=== PATIENT | female | born 2005 | race Caucasian/White ===

== ENCOUNTER 2025-01-08 09:37 | Emergency (ER) | payer BC, SELFPAY ==
[2025-01-08 09:41] VITALS: BP 144/97; PULSE 97; RESP 15; O2SAT 97
[2025-01-08 09:45] VITALS: BP 144/97; PULSE 97; RESP 15; TEMP 36.6; O2SAT 97
--- NOTE | 2025-01-08 10:11 | DI.CT_ITS ---
Exam(s) CT ABDOMEN PELVIS W EXAM: CT ABDOMEN PELVIS W CLINICAL HISTORY: Lower abd pain, right flank pain. TECHNIQUE: Imaging Protocol: Axial computed tomography images with coronal and sagittal reformatted images were created and reviewed CONTRAST MATERIAL: Intravenous: Omnipaque-350 75cc Oral: None COMPARISON: No exams were available for comparison FINDINGS: VISUALIZED LUNG BASES: Mild benign-appearing subpleural increased markings in the posterior basal segment of the right lower lobe. There is no associated pleural effusion. No overlying rib fractures.. ABDOMEN: There is no ascites. LIVER: There are no focal hepatic lesions evident. No dilated intrahepatic ducts. GALLBLADDER/BILIARY: No acute gallbladder pathology evident. CBD is not dilated. PANCREAS: No evidence of pancreatic mass nor dilatation of the pancreatic duct. SPLEEN: Spleen is not enlarged. No obvious intrasplenic lesions. Splenic and portal veins are patent. ADRENALS: There are no significant adrenal masses. KIDNEYS:No cysts evident. No solid renal masses. No calculi nor hydronephrosis.. ABDOMINAL AORTA: Abdominal aorta is not enlarged. LYMPH NODES:There is no retroperitoneal nor paraaortic adenopathy. ABDOMINAL WALL: No evidence of significant anterior abdominal wall nor inguinal hernia. GI: There is no evidence of bowel obstruction, free air, nor abscess. PELVIS: GI: No evidence of appendicitis.No evidence of sigmoid diverticulitis. LYMPH NODES: There is no intrapelvic nor inguinal adenopathy. REPRODUCTIVE: There is an IUD in the uterine atrial cavity which appears to be in satisfactory position. Follicular cysts are noted in both ovaries. No significant ovarian masses and no free fluid in the adnexal regions and cul-de-sac. URINARY BLADDER: No calculi nor obvious masses evident OSSEOUS: No fractures and no significant osseous lesions. Limbus vertebra incidentally noted at the anterosuperior aspect of L4 vertebral body. No disc space narrowing. IMPRESSION: 1. There is an IUD in satisfactory position in the endometrial canal of the anteverted uterus. No abnormal adnexal findings. No free fluid prior 2. No evidence of acute appendicitis. 3. No obvious urinary tract findings. Report called by myself to ER provider 01/08/2025 at 11:02 a.m. RADIATION DOSE DELIVERED: 388.09mGy.cm Total DLP DATA REPOSITORY: All CT scans at this facility are submitted to the National Radiology Data Registry (NRDR) Dose Index Registry (DIR) with the [employer] (A[employer]). RADIATION OPTIMIZATION: All CT scans at this facility use at least one of these dose optimization techniques: automated exposure control; mA and/or kV adjustment per patient size (includes targeted exams where dose is matched to clinical indication); or iterative reconstruction.
--- NOTE | 2025-01-08 10:12 | ED.GENADUL_ITS ---
Discharge Plan Disposition Patient Disposition: Home Condition: Stable Discharge Details Clinical Impression: Abdominal pain Primary Care Provider: None,None ED Provider: Alie Zavala Home Meds and New Rx's Prescriptions: New cephalexin 500 mg capsule 500 mg PO BID 7 Days Qty: 14 0RF Rx Instructions: Take 1 tablet by mouth twice daily for the next 7 days Discharge Instructions Instructions: Abdominal Pain, Adult ED Additional Instructions: At this time the labs and CT imaging are within normal limits. You do have some leukocytes and white blood cell in your urinalysis. You are placed on an antibiotic called cephalexin. Please take this as directed with yogurt or a probiotic twice daily for the next 7 days. Follow up with primary care provider in 3-5 days. Return to ED sooner if any worsening or concerns. Please take Tylenol or Ibuprofen with food every 4-6 hours as needed for pain and swelling. Referrals: Primary Care Provider [Outside] Discharge Data Discharge Date/Time-TO BE ENTERED AT DEPARTURE: 01/08/25 11:49 HPI General Mode of arrival: ambulatory . Date/Time Provider Initiated Documentation: 01/08/25 09:48 . Limitations to Documentation: no limitations . Information obtained by: patient, RN notes reviewed and old records reviewed . HPI Narrative: 19 year old female presents to the ER with a chief complaint of lower abdominal pain after eating some antibiotics for urinary tract infection over the last week. Has been seen at urgent care and diagnosed with UTI. She is not currently taking any antibiotic she did stop the antibiotics. Denies any nausea vomiting diarrhea. Currently has an IUD and denies any possibility of . Related Data Home Medications ?Medication ?Instructions ?Recorded ?Confirmed cephalexin 500 mg capsule 500 mg PO BID UTI 7 days #14 caps 01/08/25 Previous Rx's ?Medication ?Instructions ?Recorded cephalexin 500 mg capsule 500 mg PO BID UTI 7 days #14 caps 01/08/25 Allergies Allergy/AdvReac Type Severity Reaction Status Date / Time Penicillins Allergy Mild Itching Verified 01/08/25 09:46 General Stated Complaint: Abd Prob DENNIS: 3 Review of Systems All systems reviewed & are unremarkable except as noted in HPI and below Gastrointestinal Gastrointestinal: Reports as per HPI and Reports abdominal pain Exam Narrative Exam Narrative: Constitutional: Alert and oriented x3. Appears stated age. Normal body habitus. Head: Normocephalic, no trauma. Eyes: Pupils PERRL, Red reflex noted, EOM's intact. Eyelids symmetrical without lesions, discharge, or swelling. ENT: Bilateral TM's WNL, External ear normal to inspection, no mastoid TTP, swelling, or erythema, Nasal turbinates WNL, no nasal discharge. Normal denti tion, Posterior pharynx WNL, no exudate. Chest: RRR, Normal S1, S2, distal pulses intact. Resp: Lungs clear to auscultation bilaterally, no wheezes, rales, or rhonchi. Abdomen: Soft, non-distended, Normoactive bowel sounds all 4 quads. Musculoskeletal: Normal gait, Moves all 4 extremities without difficulty. Skin: No suspicious rashes or lesions. Capillary refill less than 2 sec. Neurologic: Cranial nerves II-XII intact. Alert and oriented x 3. Motor: No deficits noted. Sensory: Intact bilaterally all 4 extremities. Hematologic/Lymphatic: No ecchymosis, no lymphadenopathy. Course Vital Signs Vital signs: Vital Signs Pulse 97 H 01/08/25 09:41 Respiratory Rate 15 01/08/25 09:41 Blood Pressure 144/97 H 01/08/25 09:41 Pulse Oximetry 97 01/08/25 09:41 Temperature 36.6 C 01/08/25 09:45 Temperature Source Tympanic 01/08/25 09:45 Pulse 97 H 01/08/25 09:45 Respiratory Rate 15 01/08/25 09:45 Blood Pressure 144/97 H 01/08/25 09:45 Blood Pressure Position Sitting 01/08/25 09:45 Pulse Oximetry 97 01/08/25 09:45 Oxygen Delivery Method Room Air 01/08/25 09:45 Oxygen Flow Rate 0 01/08/25 09:45 Pain Level 5 01/08/25 09:45 Comment Pain gets worse as the day goes on 01/08/25 09:45 Lab/Test Results Lab/Test Results: POC- Test(urine) Negative Medical Decision Making 19 year old female presents to the ER with a chief complaint of lower abdominal pain after eating some antibiotics for urinary tract infection over the last week. Has been seen at urgent care and diagnosed with UTI. She is not currently taking any antibiotic she did stop the antibiotics. Denies any nausea vomiting diarrhea. Currently has an IUD and denies any possibility of . CBC CMP lipase urinalysis ordered. CT abdomen pelvis. Differential diagnose include but not limited to UTI, kidney stone, ovarian cyst, CT is WNL, no acute abnormality. No leukocytosis, CMP within normal limits urinalysis shows large leukocytes greater than 50 WBCs with many epithelial cells, culture not indicated at this time due to squamous contamination. Will give Cephalexin Discussed home care follow-up care and plan of care with patient and family who verbalized understanding. This text was generated using [employer] dictation system, please disregard any oddities of phrase or misspellings. Lab Data Lab results reviewed: Yes I reviewed the patient's lab results. Labs: Laboratory Tests Range/Units 01/08/25 10:00 WBC (4.4-10.8) 10^3/uL 6.11 RBC (3.93-5.22) 10^6/uL 4.81 Hgb (11.2-15.7) g/dL 13.6 Hct (36.0-46.0) % 40.9 MCV (80-95) fL 85 MCH (27.0-33.0) pg 28.3 MCHC (32.0-36.0) % 33.3 RDW (11.7-14.6) % 12.2 Plt Count (130-400) 10^3/uL 330 MPV (8.0-11.0) fL 8.5 Immature Gran % % 0.2 Neutrophils % % 58.2 Lymphocytes % % 30.4 Monocytes % % 9.2 Eosinophils % % 1.5 Basophils % % 0.5 Nucleated RBC % (0.0-0.3) % 0.0 Absolute Neutrophils (1.2-6.7) 10^3/uL 3.56 Absolute Lymphocytes (1.2-3.4) 10^3/uL 1.86 Absolute Monocytes (0.1-0.8) 10^3/uL 0.56 Absolute Eosinophils (0.0-0.7) 10^3/uL 0.09 Absolute Basophils (0.0-0.2) 10^3/uL 0.03 Sodium (136-145) mmol/L 138 Potassium (3.5-5.1) mmol/L 4.0 Chloride (98-107) mmol/L 103 Carbon Dioxide (21.0-32.0) mmol/L 29.6 Anion Gap (3-11) mmol/L 5.4 BUN (7-18) mg/dL 8 Creatinine (0.55-1.02) mg/dL 0.7 Est GFR (CKD-EPI 2020) (mL/min/1.73m2) 126.11 Glucose (74-106) mg/dL 87 Calcium (8.5-10.1) mg/dL 9.6 Magnesium (1.8-2.4) mg/dL 2.1 Total Bilirubin (0.2-1.0) mg/dL 0.3 AST (15-37) U/L 16 ALT (14-59) U/L 21 Alkaline Phosphatase (46-116) U/L 82 Total Protein (6.4-8.2) g/dL 8.1 Albumin (3.4-5.0) g/dL 3.9 Lipase (<78) U/L 51 Urine Color (Yellow) Yellow Urine Clarity (Clear) Sl Cloudy Urine pH (5-8) 8.5 H Ur Specific [place] (1.005-1.025) 1.020 Urine Protein (Neg-Trace) mg/dL Trace Urine Ketones (Negative) mg/dL Negative Urine Blood (Negative) Negative Urine Nitrite (Negative) Negative Urine Bilirubin (Negative) Negative Urine Urobilinogen (Up to 0.2) mg/dL 0.2 Ur Leukocyte Esterase (Negative) Large H Urine RBC (0-2) HPF 0-2 Urine WBC (0-5) HPF >50 H Ur Epithelial Cells (Negative) HPF Many Urine Crystals (Negative) HPF Negative Urine Bacteria (Negative) HPF Many Urine Casts (Negative) LPF 0-2 Hyaline Urine Mucus (Negative) Negative Ur Culture Indicated? No/Sq. Contamination Urine Glucose (Negative) mg/dL Negative PFSH All Active Problems (Updated 01/08/25 @ 11:40 by Alie Zavala NP) Abdominal pain (Acute) Social History Smoking/Tobacco Use Status: Never Smoking risk assessment performed?: Yes Alcohol Intake: never Drug use: Never Substance use type: does not use
[2025-01-08 10:13] LABS: Abs Immature Grans 0.01 10^3/uL (0.0-0.06); HCT 40.9 % (36.0-46.0); HGB 13.6 g/dL (11.2-15.7); Immature Grans % 0.2 %; MCH 28.3 pg (27.0-33.0); MCHC 33.3 % (32.0-36.0); MCV 85 fL (80-95); MPV 8.5 fL (8.0-11.0); Platelet Count 330 10^3/uL (130-400); RBC 4.81 10^6/uL (3.93-5.22); RDW 12.2 % (11.7-14.6); RDW-SD 37.4 fL; WBC 6.11 10^3/uL (4.4-10.8)
[2025-01-08 10:14] LABS: Glucose Negative (Negative)
[2025-01-08 10:23] LABS: RBC 0-2 HPF (0-2); WBC >50 HPF (0-5)
[2025-01-08 10:26] LABS: ALT 21 U/L (14-59); AST 16 U/L (15-37); Albumin 3.9 g/dL (3.4-5.0); Alkaline Phosphatase 82 U/L (46-116); Anion Gap 5.4 mmol/L (3-11); BUN 8 mg/dL (7-18); Bilirubin, Total 0.3 mg/dL (0.2-1.0); CO2 29.6 mmol/L (21.0-32.0); Calcium 9.6 mg/dL (8.5-10.1); Chloride 103 mmol/L (98-107); Estimated GFR 126.11 (mL/min/1.73m2); Glucose 87 mg/dL (74-106); Lipase 51 U/L (<78); Magnesium 2.1 mg/dL (1.8-2.4); Potassium 4.0 mmol/L (3.5-5.1); Sodium 138 mmol/L (136-145); Total Protein 8.1 g/dL (6.4-8.2)
[2025-01-08] MEDS: Omnipaque 350 MG/ML 100 ML BTL IJ (10:31)
[2025-01-08] MEDS: Normal Saline - Diluent 50 ML VIAL IJ (10:32)
[2025-01-08] MEDS: Normal Saline Flush 10 ML SYR IVP (10:32)
[2025-01-08] MEDS: Cephalexin 500 MG CAP PO (11:44)
== END 2025-01-08 11:49 | disposition home or self-care (01) ==
LOC: ER 11:59
PROVIDERS: Emergency Provider Registered Nurse Emergency
DX: R10.30 Lower abdominal pain, unspecified (principal); Z87.440 Personal history of urinary (tract) infections
CPT/HCPCS: 99283; 99285; 81025; 80053; 83690; 74177; 81003; 81015; 83735; 85025; J3490